=== PATIENT | male | born 1970 | race Caucasian/White ===

== ENCOUNTER 2022-01-12 15:27 | Inpatient (IN) | payer OTHER ==
[~2022-01-12] VITALS: Ht 165.1 cm; Wt 94.9 kg
[~2022-01-12 15:27] MED LIST: ASPI-1406 MT; CARV3.1242 MT; FURO-151 MT; LIP40 MT; OXYC1TAB5 MT; POTA20TA82 MT
[2022-01-12] MEDS ORDERED: ACETAMINOPHEN 325MG TABLET PO STA (16:04)
[2022-01-12] MEDS ORDERED: VANCOMYCIN 1G PREMIX 200 ML IV ONE (16:15)
[2022-01-12] MEDS ORDERED: PIPERACILLIN/TAZ 3.375G PREMIX 50 ML IV ONE (16:15)
[2022-01-12] MEDS ORDERED: SODIUM CHLORIDE 0.9% 1000ML BAG (SEPSIS BOLUS) IV ONE (16:15)
[2022-01-12 16:32] LABS: BASOPHILS % 0.6 % (0.0-2.0); EOSINOPHILS % 0.4 % (0.0-5.0); HEMATOCRIT. 31.3 % (42.0-52.0); HEMOGLOBIN. 10.6 g/dL (14.0-18.0); LYMPHOCYTES % 15.3 % (20.0-50.0); MEAN CORPUSCULAR HEMOGLOBIN 29.7 pg (28.0-32.0); MEAN CORPUSCULAR VOLUME 87.9 fL (80.0-94.0); MONOCYTES % 10.6 % (2.0-8.0); NEUTROPHILS % 73.1 % (40.0-76.0); PLATELET 424 x1000/uL (130-400); RED BLOOD CELL COUNT 3.55 mill/uL (4.7-6.1); RED CELL DISTRIBUTION WIDTH 13.6 % (11.6-14.6)
[2022-01-12 16:37] LABS: CHLORIDE 109 mEq/L (98-107)
[2022-01-12 17:01] LABS: D-DIMER 8.5 mg/L FEU (<0.50); INR 1.1; PARTIAL THROMBOPLASTIN TIME 26.8 sec (23.4-31.0); PROTHROMBIN TIME 12.2 sec (9.6-11.0)
[2022-01-12] MEDS ORDERED: ONDANSETRON HCL 4MG/2ML INJ IV STA (17:48)
[2022-01-12] MEDS ORDERED: MORPHINE SULFATE 4 MG/ML CPJ (NOT FOR IM USE) IV STA (17:48)
[2022-01-12] MEDS ORDERED: HEPARIN 25,000 UNITS PREMIX 250 ML IV STA (19:02)
[2022-01-12] MEDS ORDERED: HEPARIN 5000 UNITS/ML VIAL IV ONE (19:15)
[2022-01-12] MEDS ORDERED: HEPARIN 25,000 UNITS PREMIX 250 ML IV SCH (19:45)
[2022-01-12] MEDS ORDERED: MORPHINE SULFATE 4 MG/ML CPJ (NOT FOR IM USE) IV NR (20:45)
[2022-01-13] VITALS (7 sets, daily range): BP systolic 115–151; BP diastolic 61–76
[2022-01-13] MEDS: HEPARIN BOLUS PRN aPTT <36 IV ×3 (02:11→23:02)
[2022-01-13] MEDS ORDERED: ACETAMINOPHEN 325MG TABLET PO PRN ×2 (06:15→16:45)
[2022-01-13] MEDS ORDERED: ONDANSETRON HCL 4MG/2ML INJ IV PRN (06:15)
[2022-01-13] MEDS: SODIUM CHLORIDE 0.9% 1,000 ML IV SCH ×2 (06:44→20:55)
[2022-01-13] MEDS ORDERED: VANCOMYCIN 2,000 MG in DEXT 5% WATER 500 ML IV NR (08:30)
[2022-01-13] MEDS: PIPERACILLIN/TAZOBACTAM 3.375G in DEXT 5% WATER 50ML IV SCH ×2 (09:57→15:16)
[2022-01-13] MEDS: VANCOMYCIN 750MG PMX (XELLIA) 150 ML IV SCH ×3 (10:02→20:54)
[2022-01-13] MEDS: HYDROCODONE/ACETAMINOPHEN 5/325MG TABLET PO PRN ×3 (10:07→23:42)
[2022-01-13 10:43] LABS: BASOPHILS % 0.2 % (0.0-2.0); EOSINOPHILS % 0.2 % (0.0-5.0); HEMATOCRIT. 25.1 % (42.0-52.0); HEMOGLOBIN. 8.7 g/dL (14.0-18.0); MEAN CORPUSCULAR HEMOGLOBIN 30.4 pg (28.0-32.0); MEAN CORPUSCULAR VOLUME 87.5 fL (80.0-94.0); NEUTROPHILS % 67.6 % (40.0-76.0); PLATELET 348 x1000/uL (130-400); RED BLOOD CELL COUNT 2.87 mill/uL (4.7-6.1); RED CELL DISTRIBUTION WIDTH 13.7 % (11.6-14.6)
[2022-01-13 10:59] LABS: CHLORIDE 107 mEq/L (98-107)
[2022-01-13 11:08] LABS: T4 FREE 1.37 ng/dL (0.76-1.46)
[2022-01-13] MEDS: HEPARIN 25,000 UNITS in DEXT 5% WATER 245 ML IV SCH (13:17)
[2022-01-13] MEDS ORDERED: IPRATROPIUM/ALBUTEROL 0.5-3(2.5)MG/3ML NEB HHN PRN (14:15)
[2022-01-13] MEDS ORDERED: DEXTROSE 50% WATER 50ML SYRINGE IV PRN (15:15)
[2022-01-13] MEDS: BLOOD SUGAR DIAGNOSTIC STRIP TEST SCH ×2 (16:26→20:57)
[2022-01-13] MEDS: INSULIN LISPRO 100 UNITS/ML SUBCUT SCH ×2 (16:26→20:57)
[2022-01-13 17:18] LABS: CREATINE KINASE 22 IU/L (39-308); CREATINE KINASE MB FRACTION < 1.0 ng/mL (0.5-3.6)
[2022-01-14] VITALS (11 sets, daily range): BP systolic 109–142; BP diastolic 55–78
[2022-01-14] MEDS: PIPERACILLIN/TAZOBACTAM 3.375G in DEXT 5% WATER 50ML IV SCH ×4 (00:01→23:44)
[2022-01-14 00:33] LABS: CREATINE KINASE 17 IU/L (39-308); CREATINE KINASE MB FRACTION < 1.0 ng/mL (0.5-3.6)
[2022-01-14] MEDS: HEPARIN 25,000 UNITS in DEXT 5% WATER 245 ML IV SCH ×2 (03:37→15:13)
[2022-01-14] MEDS: VANCOMYCIN 750MG PMX (XELLIA) 150 ML IV SCH ×2 (05:36→14:16)
[2022-01-14] MEDS: BLOOD SUGAR DIAGNOSTIC STRIP TEST SCH ×4 (06:03→21:15)
[2022-01-14] MEDS: INSULIN LISPRO 100 UNITS/ML SUBCUT SCH ×4 (06:20→21:38)
[2022-01-14 06:59] LABS: METHADONE URINE SCREEN NEGATIVE (NEGATIVE); OPIATES URINE SCREEN PRESUMTIVE POSITIVE (NEGATIVE)
[2022-01-14 07:00] LABS: *AMPHETAMINES SCREEN URINE NEGATIVE (NEGATIVE); *BARBITURATES SCREEN URINE NEGATIVE (NEGATIVE); *BENZODIAZEPINES SCREEN URINE NEGATIVE (NEGATIVE); *COCAINE SCREEN URINE NEGATIVE (NEGATIVE); CANNABINOID URINE SCREEN NEGATIVE (NEGATIVE); PHENCYCLIDINE URINE SCREEN NEGATIVE (NEGATIVE)
[2022-01-14 08:08] LABS: CREATINE KINASE 14 IU/L (39-308); CREATINE KINASE MB FRACTION < 1.0 ng/mL (0.5-3.6)
[2022-01-14] MEDS: HEPARIN BOLUS PRN aPTT <36 IV ×2 (09:00→16:12)
[2022-01-14] MEDS: SODIUM CHLORIDE 0.9% 1,000 ML IV SCH ×2 (14:08→23:50)
[2022-01-14] MEDS ORDERED: NALOXONE HCL 0.4MG/ML VIAL IV PRN (16:15)
[2022-01-14] MEDS ORDERED: VANCOMYCIN 1250MG in DEXTROSE 5% WATER 250ML IV SCH (20:00)
[2022-01-15] VITALS (12 sets, daily range): BP systolic 116–138; BP diastolic 67–82
[2022-01-15] MEDS: HEPARIN BOLUS PRN aPTT 37-44 IV ×2 (01:26→08:47)
[2022-01-15] MEDS: HEPARIN 25,000 UNITS in DEXT 5% WATER 245 ML IV SCH ×2 (01:29→10:39)
[2022-01-15] MEDS: VANCOMYCIN 1250MG in DEXTROSE 5% WATER 250ML IV SCH ×3 (01:36→17:55)
[2022-01-15] MEDS: PIPERACILLIN/TAZOBACTAM 3.375G in DEXT 5% WATER 50ML IV SCH ×3 (05:35→22:37)
[2022-01-15] MEDS: SODIUM CHLORIDE 0.9% 1,000 ML IV SCH ×2 (05:45→16:56)
[2022-01-15] MEDS: BLOOD SUGAR DIAGNOSTIC STRIP TEST SCH ×4 (06:00→21:00)
[2022-01-15] MEDS: INSULIN LISPRO 100 UNITS/ML SUBCUT SCH ×4 (06:46→21:00)
[2022-01-15 07:28] LABS: BASOPHILS % 1.1 % (0.0-2.0); EOSINOPHILS % 1.2 % (0.0-5.0); HEMOGLOBIN. 9.1 g/dL (14.0-18.0); LYMPHOCYTES % 25.8 % (20.0-50.0); MEAN CORPUSCULAR HEMOGLOBIN 30.7 pg (28.0-32.0); MEAN CORPUSCULAR VOLUME 87.3 fL (80.0-94.0); MONOCYTES % 9.3 % (2.0-8.0); NEUTROPHILS % 62.6 % (40.0-76.0); PLATELET 309 x1000/uL (130-400); RED BLOOD CELL COUNT 2.97 mill/uL (4.7-6.1); RED CELL DISTRIBUTION WIDTH 13.7 % (11.6-14.6)
[2022-01-15 07:59] LABS: CHLORIDE 105 mEq/L (98-107)
[2022-01-15] MEDS ORDERED: LACTULOSE 20G/30ML UDC PO PRN (11:30)
[2022-01-15] MEDS ORDERED: POTASSIUM CHLORIDE 20MEQ TABLET SR PO NR (12:00)
[2022-01-15] MEDS: ENOXAPARIN 100MG/ML SYR SUBCUT SCH (14:57)
[2022-01-15] MEDS: DOCUSATE SODIUM 250MG CAPSULE PO SCH (17:54)
[2022-01-15] MEDS ORDERED: VANCOMYCIN 1.25GM PMX (XELLIA) 250 ML IV SCH (23:00)
[2022-01-16] VITALS (7 sets, daily range): BP systolic 110–143; BP diastolic 67–84
[2022-01-16] MEDS: ENOXAPARIN 100MG/ML SYR SUBCUT SCH ×2 (02:44→14:20)
[2022-01-16 06:17] LABS: CHLORIDE 105 mEq/L (98-107)
[2022-01-16] MEDS: PIPERACILLIN/TAZOBACTAM 3.375G in DEXT 5% WATER 50ML IV SCH ×2 (06:40→14:20)
[2022-01-16] MEDS: SODIUM CHLORIDE 0.9% 1,000 ML IV SCH ×2 (06:40→17:21)
[2022-01-16] MEDS: INSULIN LISPRO 100 UNITS/ML SUBCUT SCH ×5 (07:20→21:00)
[2022-01-16] MEDS: BLOOD SUGAR DIAGNOSTIC STRIP TEST SCH ×5 (07:37→21:48)
[2022-01-16] MEDS: DOCUSATE SODIUM 250MG CAPSULE PO SCH ×2 (09:17→17:07)
[2022-01-16] MEDS ORDERED: LEVO750T46 MT (21:15)
[2022-01-16] MEDS ORDERED: METR-167 MT (21:15)
[2022-01-17] VITALS: BP 131/75
[2022-01-17] MEDS: PIPERACILLIN/TAZOBACTAM 3.375G in DEXT 5% WATER 50ML IV SCH ×2 (00:07→06:00)
[2022-01-17] MEDS: ENOXAPARIN 100MG/ML SYR SUBCUT SCH (02:37)
[2022-01-17 04:00] VITALS: BP 130/79
[2022-01-17 06:46] LABS: EOSINOPHILS % 1.9 % (0.0-5.0); HEMATOCRIT. 28.1 % (42.0-52.0); HEMOGLOBIN. 9.5 g/dL (14.0-18.0); LYMPHOCYTES % 28.7 % (20.0-50.0); MEAN CORPUSCULAR HEMOGLOBIN 29.5 pg (28.0-32.0); MEAN PLATELET VOLUME 9.9 fl (7.4-10.4); MONOCYTES % 8.2 % (2.0-8.0); NEUTROPHILS % 60.2 % (40.0-76.0); PLATELET 300 x1000/uL (130-400); RED BLOOD CELL COUNT 3.23 mill/uL (4.7-6.1); RED CELL DISTRIBUTION WIDTH 13.8 % (11.6-14.6)
[2022-01-17 06:50] LABS: CHLORIDE 106 mEq/L (98-107)
[2022-01-17] MEDS: BLOOD SUGAR DIAGNOSTIC STRIP TEST SCH (07:40)
[2022-01-17 08:00] VITALS: BP 138/78
[2022-01-17] MEDS: INSULIN LISPRO 100 UNITS/ML SUBCUT SCH (08:10)
[2022-01-17] MEDS: DOCUSATE SODIUM 250MG CAPSULE PO SCH (09:00)
[2022-01-17] MEDS ORDERED: NALO4SPR BOTHNSTRLS (11:14)
[2022-01-17] MEDS ORDERED: APIX5TAB MT (11:14)
[2022-01-17] MEDS ORDERED: HYDR-4001 MT (11:14)
[2022-01-17] MEDS ORDERED: POTASSIUM CHLORIDE 20MEQ TABLET SR PO SCH (11:15)
[2022-01-17 13:20] VITALS: BP 120/73
== END 2022-01-17 15:30 | disposition home or self-care (01) | DRG 720 ==
LOC: ER 15:27 → MICUSO 17:50 → EDBEDREQSVC 19:33 → EDBEDREQTM 19:33 → 3WST 01-13 11:10 → 7WST 01-16 17:34
PROVIDERS: ADMIT Internal Medicine; ATTEND Internal Medicine
DX: A41.9 Sepsis, unspecified organism (principal); I26.99 Other pulmonary embolism without acute cor pulmonale; E44.0 Moderate protein-calorie malnutrition; E11.9 Type 2 diabetes mellitus without complications; D64.9 Anemia, unspecified; E87.6 Hypokalemia; I25.10 Atherosclerotic heart disease of native coronary artery without angina pectoris; K57.90 Diverticulosis of intestine, part unspecified, without perforation or abscess without bleeding; K38.1 Appendicular concretions; Z90.49 Acquired absence of other specified parts of digestive tract; Z95.1 Presence of aortocoronary bypass graft; I25.2 Old myocardial infarction; Z68.34 Body mass index [BMI] 34.0-34.9, adult; Z79.82 Long term (current) use of aspirin; Z79.899 Other long term (current) drug therapy
CPT/HCPCS: 36415; 71045; 71275; 74176; 80048; 80053; 80061; 80202; 80305; 82550; 82553; 82962; 83036; 83605; 83880; 84145; 84439; 84443; 84484; 85025; 85379; 93005; 93306; 93970; 97162; 97166; 97535; 99291; C1893; J1644; J1650; J1815; J2270; J2405; J2543; J3370; J7030; J7060